=== PATIENT | female | born 1990 | race Caucasian/White ===

== ENCOUNTER 2016-12-11 09:45 | Emergency (ER) | payer OTHER, MEDICAID ==
[2016-12-11] MEDS ORDERED: Ibuprofen TAB* 400 MG PO ONE (10:08)
--- NOTE | 2016-12-11 10:11 | UC ---
Throat Pain/Nasal Daniel HPI - HPI Summary HPI Summary: Sore throat and malaise for 24 hours. - History of Current Complaint Stated Complaint: SORE THROAT,FEVER,EAR PAIN Time Seen by Provider: 12/11/16 10:05 Hx Obtained From: Patient Hx Last Menstrual Period: MIRENA ?: No Onset/Duration: Gradual Onset Severity: Moderate Cough: None Associated Signs & Symptoms: Positive: Dysphagia, Fever. Negative: Wheezing, Sinus Discomfort, Nasal Discharge, Rash - Epiglottits Risk Factors Epiglottis Risk Factors: Negative - Allergies/Home Medications Allergies/Adverse Reactions: Allergies Allergy/AdvReac Type Severity Reaction Status Date / Time No Known Allergies Allergy Verified 12/11/16 10:13 Home Medications: Home Medications Acetaminophen [Acetaminophen Extra Stren] 1,000 mg PO Q6H PRN 12/11/16 [History Confirmed 12/11/16] PMH/Surg Hx/FS Hx/Imm Hx Previously Healthy: Yes - Surgical History Surgical History: Yes Surgery Procedure, Year, and Place: D&C - Family History Known Family History: Positive: Hypertension - Social History Alcohol Use: Rare Substance Use Type: None Smoking Status (MU): Never Smoked Tobacco - Immunization History Most Recent Influenza Vaccination: none Review of Systems All Other Systems Reviewed And Are Negative: Yes Physical Exam Triage Information Reviewed: Yes Appearance: Well-Appearing, No Pain Distress, Well-Nourished Vital Signs Reviewed: Yes ENT: Positive: Pharyngeal erythema, TMs normal. Negative: Nasal drainage, TM bulging, TM dull, TM red, Tonsillar swelling, Tonsillar exudate, Trismus Neck exam: Normal Neck: Positive: Supple, Tenderness @ - minh submandibular. Respiratory Exam: Normal Cardiovascular Exam: Normal Abdominal Exam: Normal Abdomen Description: Positive: Nontender, No Organomegaly Musculoskeletal Exam: Normal Musculoskeletal: Positive: Strength Intact, ROM Intact, No Edema Neurological Exam: Normal Psychological Exam: Normal Throat Pain/Nasal Course/Dx - Differential Dx/Diagnosis Differential Diagnosis/HQI/PQRI: Epiglottitis, Foreign Body, Influenza, Laryngitis, Lico's Angina, Mononucleosis, Otitis Media, Peritonsillar Abscess , Pharyngitis, Sinusitis, Tonsillitis, URI Provider Diagnoses: viral uri. viral pharyngitis. Discharge - Discharge Plan Condition: Good Disposition: HOME Patient Education Materials: Pharyngitis (ED), Upper Respiratory Infection (ED) Referrals: Esperanza Mederos MD [Primary Care Provider] - If Needed
[2016-12-11 10:21] VITALS: BP 99/62
== END 2016-12-11 10:53 | disposition home or self-care (01) ==
LOC: UCCORT 09:45
DX: J06.9 Acute upper respiratory infection, unspecified (principal); J02.9 Acute pharyngitis, unspecified
CPT/HCPCS: 87651; 99212; A9270-GY; G0463

== ENCOUNTER 2017-10-12 10:45 | Emergency (ER) | payer BC, MEDICAID, OTHER ==
[2017-10-12 12:07] VITALS: BP 102/78
--- NOTE | 2017-10-12 13:12 | UC ---
Ear Complaint HPI - HPI Summary HPI Summary: 27 year old female here with congestion and ear pain. Symptoms started 4 days ago and reports her kids (also here for evaluation) had URI symptoms. She reports right ear pain for 3 days with congestion. Of note, patient is 4 weeks s/p 2/2 eclampsia and HELP syndrome. Currently not breast feeding. - History of Current Complaint Chief Complaint: UCRespiratory Stated Complaint: EAR COMPLAINT/COUGH Time Seen by Provider: 10/12/17 12:12 Hx Obtained From: Patient Hx Last Menstrual Period: spotting since 09/15/17 Onset/Duration: Gradual Onset Severity Initially: Mild Severity Currently: Mild Pain Intensity: 5 Alleviating Factors: OTC Meds - Allergies/Home Medications Allergies/Adverse Reactions: Allergies Allergy/AdvReac Type Severity Reaction Status Date / Time No Known Allergies Allergy Verified 10/12/17 12:08 Home Medications: Home Medications Acetaminophen TAB* [Tylenol TAB*] 1,000 mg PO SEE INSTRUCTIONS PRN 10/12/17 [ History Confirmed 10/12/17] Diphenhydra/Phenyleph/Acetamin [Theraflu Nt Severe Cld-Cgh Pkt] 1 dose PO SEE INSTRUCTIONS PRN 10/12/17 [History Confirmed 10/12/17] Labetalol TAB* [Trandate TAB*] 100 mg PO BID 10/12/17 [History Confirmed ] PMH/Surg Hx/FS Hx/Imm Hx Previously Healthy: No Cardiovascular History: Hypertension - Surgical History Surgical History: Yes Surgery Procedure, Year, and Place: D&C, emergent 09/15/17 s/p eclampsia with seizures - Family History Known Family History: Positive: Hypertension - Social History Alcohol Use: Rare Substance Use Type: None Smoking Status (MU): Never Smoked Tobacco - Immunization History Most Recent Influenza Vaccination: none Review of Systems Constitutional: Negative Skin: Negative Eyes: Negative ENT: Ear Ache Respiratory: Cough Cardiovascular: Negative Gastrointestinal: Negative Genitourinary: Negative Motor: Negative Neurovascular: Negative Musculoskeletal: Negative Neurological: Negative Psychological: Negative All Other Systems Reviewed And Are Negative: Yes Physical Exam Triage Information Reviewed: Yes Appearance: Well-Appearing, No Pain Distress Vital Signs: Initial Vital Signs Temp 36.9 C 10/12/17 12:00 Pulse 102 10/12/17 12:00 Resp 20 10/12/17 12:00 BP 102/78 10/12/17 12:00 Pulse Ox 99 10/12/17 12:00 ENT: Positive: Nasal congestion, TM bulging - right TM bulding Neck: Positive: Supple, Nontender, No Lymphadenopathy Respiratory Exam: Normal Cardiovascular Exam: Other - slightly tachy at triage but now resolved Abdominal Exam: Normal Musculoskeletal Exam: Normal Neurological Exam: Normal Ear Complaint Course/Dx - Differential Dx/Diagnosis Differential Diagnosis/HQI/PQRI: Otitis Media, Perforated TM, Pharyngitis Provider Diagnoses: Otitis Media and pharyngitis. Will treat with amox and tylenol 3 for cough/congestion Discharge - Sign-Out/Discharge Documenting (check all that apply): Discharge/Admit/Transfer - Discharge Plan Condition: Good Disposition: HOME Prescriptions: Acetaminop/Codeine 30 MG TAB* [Tylenol/Codeine 30 MG TAB*] 1 tab PO Q6H PRN #12 tab MDD 3 PRN Reason: Cough Amoxicillin PO (*) [Amoxicillin 875 MG (*)] 875 mg PO BID #20 tab Patient Education Materials: Ear Infection (ED), Upper Respiratory Infection ( ED) Referrals: Esperanza Mederos MD [Primary Care Provider] - Additional Instructions: Do not take tylenol [address] heavy machinery - Billing Disposition and Condition Condition: GOOD Disposition: HOME
== END 2017-10-12 13:30 | disposition home or self-care (01) ==
LOC: UCCORT 10:45
DX: H66.90 Otitis media, unspecified, unspecified ear (principal); J02.9 Acute pharyngitis, unspecified
CPT/HCPCS: 99212; G0463

== ENCOUNTER 2018-06-09 08:52 | Emergency (ER) | payer BC, MEDICAID ==
[2018-06-09 09:09] VITALS: BP 117/79
--- NOTE | 2018-06-09 09:47 | UC ---
Respiratory Complaint HPI - HPI Summary HPI Summary: Pt presents with c/o bilateral ear pain, nasal congestion, cough, ST and generalized malaise x 3 days. Pt reports that "everyone in her house is sick" - History of Current Complaint Chief Complaint: UCEar Stated Complaint: SORE THROAT,EARS Time Seen by Provider: 06/09/18 09:08 Hx Obtained From: Patient Hx Last Menstrual Period: 05/18/18 ?: No Onset/Duration: Sudden Onset, Lasting Days, Still Present, Worse Since - onset Timing: Constant Severity Initially: Mild Severity Currently: Moderate Pain Intensity: 8 Associated Signs And Symptoms: Positive: Chills, URI, Nasal Congestion - Risk Factors Pulmonary Embolism Risk Factors: Negative Cardiac Risk Factors: Negative Pseudomonas Risk Factors: Negative Tuberculosis Risk Factors: Negative - Allergies/Home Medications Allergies/Adverse Reactions: Allergies Allergy/AdvReac Type Severity Reaction Status Date / Time No Known Allergies Allergy Verified 06/09/18 09:06 PMH/Surg Hx/FS Hx/Imm Hx Previously Healthy: Yes - Surgical History Surgical History: Yes Surgery Procedure, Year, and Place: D&C, emergent 09/15/17 s/p eclampsia with seizures. tubal - Family History Known Family History: Positive: Hypertension - Social History Occupation: Employed Full-time Lives: With Family Alcohol Use: None Substance Use Type: None Smoking Status (MU): Never Smoked Tobacco Have You Smoked in the Last Year: No - Immunization History Most Recent Influenza Vaccination: none Vaccination Up to Date: No Review of Systems All Other Systems Reviewed And Are Negative: Yes Constitutional: Positive: Fatigue Skin: Positive: Negative Eyes: Positive: Negative ENT: Positive: Sore Throat, Ear Ache Respiratory: Positive: Negative Cardiovascular: Positive: Negative Gastrointestinal: Positive: Negative Genitourinary: Positive: Negative Motor: Positive: Negative Neurovascular: Positive: Negative Musculoskeletal: Positive: Myalgia Neurological: Positive: Headache Psychological: Positive: Negative Is Patient Immunocompromised?: No Physical Exam Triage Information Reviewed: Yes Appearance: Ill-Appearing Vital Signs: Initial Vital Signs Temp 98.2 F 06/09/18 09:06 Pulse 89 06/09/18 09:06 Resp 16 06/09/18 09:06 BP 117/79 06/09/18 09:06 Pulse Ox 99 06/09/18 09:06 Vital Signs Reviewed: Yes ENT: Positive: Nasal congestion, TM bulging Dental Exam: Normal Neck exam: Normal Respiratory Exam: Normal Respiratory: Positive: Other: - upper respiratory congestion Cardiovascular Exam: Normal Musculoskeletal Exam: Normal Neurological Exam: Normal Psychological Exam: Normal Skin Exam: Normal UC Diagnostic Evaluation - Laboratory O2 Sat by Pulse Oximetry: 99 Respiratory Course/Dx - Differential Dx/Diagnosis Differential Diagnosis/HQI/PQRI: Bronchitis, Influenza Provider Diagnosis: Bronchitis Discharge - Sign-Out/Discharge Documenting (check all that apply): Patient Departure All imaging exams completed and their final reports reviewed: No Studies - Discharge Plan Condition: Stable Disposition: HOME Prescriptions: Azithromycin TAB* [Zithromax TAB (Z-MAY) 250 mg #6 tabs] 2 tab PO .TODAY, THEN 1 DAILY #1 may Guaifenesin/Pseudoephedrne HCl [Mucinex D ER 600-60 mg Tablet] 1 each PO Q12H # 20 tab.er.12h Patient Education Materials: Acute Bronchitis (ED) Referrals: [facility] [Outside] No Primary Care Phys,NOPCP [Primary Care Provider] - - Billing Disposition and Condition Condition: STABLE Disposition: Home - Attestation Statements Provider Attestation: I was available for consult. This patient was seen by the [facility]. The patient was not presented to, seen by, or examined by me. EK
== END 2018-06-09 09:52 | disposition home or self-care (01) ==
LOC: UCCORT 08:52
DX: J40 Bronchitis, not specified as acute or chronic (principal)
CPT/HCPCS: 99212; G0463

== ENCOUNTER 2018-10-05 17:24 | Emergency (ER) | payer SELFPAY ==
[2018-10-05 18:13] VITALS: BP 104/66
--- NOTE | 2018-10-05 18:27 | ED ---
Throat Pain/Nasal Congestion - HPI Summary HPI Summary: 28 yr old female with the complaint of sore throat. Onset yesterday. She is concerned for strep throat. She has two other kids in her house with Strep. She denies fever, chills. Last weekend she did have funny nose and cough. That resolved and then onset of these symptoms now. Her symptoms are moderate. - History of Current Complaint Chief Complaint: UCGeneralIllness Time Seen by Provider: 10/05/18 18:15 - Allergies/Home Medications Allergies/Adverse Reactions: Allergies Allergy/AdvReac Type Severity Reaction Status Date / Time No Known Allergies Allergy Verified 10/05/18 18:12 PMH/Surg Hx/FS Hx/Imm Hx - Surgical History Surgery Procedure, Year, and Place: D&C, emergent 09/15/17 s/p eclampsia with seizures. tubal Infectious Disease History: No Infectious Disease History: Denies: Hx Clostridium Difficile, Hx Hepatitis, Hx Human Immunodeficiency Virus (HIV), Hx of Known/Suspected MRSA, Hx Shingles, Hx Tuberculosis, Hx Known/ Suspected VRE, Hx Known/Suspected VRSA, History Other Infectious Disease, Traveled Outside the in Last 30 Days - Family History Known Family History: Positive: Hypertension - Social History Occupation: Employed Full-time Alcohol Use: Occasionally Substance Use Type: Reports: None Smoking Status (MU): Never Smoked Tobacco Have You Smoked in the Last Year: No Review of Systems Constitutional: Negative Positive: Sore Throat All Other Systems Reviewed And Are Negative: Yes Physical Exam Triage Information Reviewed: Yes Vital Signs On Initial Exam: Initial Vitals Temp Pulse Resp BP Pulse Ox 99.4 F 93 16 104/66 100 10/05/18 18:09 10/05/18 18:09 10/05/18 18:09 10/05/18 18:09 10/05/18 18:09 Vital Signs Reviewed: Yes Appearance: Positive: Well-Appearing, No Pain Distress Skin: Positive: Warm, Skin Color Reflects Adequate Perfusion Head/Face: Positive: Normal Head/Face Inspection Eyes: Positive: EOMI ENT: Positive: Pharyngeal erythema, TMs normal Neck: Positive: Nontender Respiratory/Lung Sounds: Positive: Clear to Auscultation, Breath Sounds Present Cardiovascular: Positive: RRR. Negative: Murmur Abdomen Description: Positive: Nontender. Negative: Distended Musculoskeletal: Positive: Strength/ROM Intact Neurological: Positive: Sensory/Motor Intact, Alert, Oriented to Person Place, Time, CN Intact II-III, Normal Gait, Speech Normal Psychiatric: Positive: Normal - Sana Coma Scale Best Eye Response: 4 - Spontaneous Best Motor Response: 6 - Obeys Commands Best Verbal Response: 5 - Oriented Coma Scale Total: 15 Diagnostics - Vital Signs Vital Signs Temp Pulse Resp BP Pulse Ox 10/05/18 18:09 99.4 F 93 16 104/66 100 - Laboratory Lab Statement: Any lab studies that have been ordered have been reviewed, and results considered in the medical decision making process. EENT Course/Dx - Course Course Of Treatment: 28 yr old female with pharyngitis. positive for strep - Diagnoses Provider Diagnoses: Strep pharyngitis Discharge - Sign-Out/Discharge Documenting (check all that apply): Patient Departure All imaging exams completed and their final reports reviewed: No Studies - Discharge Plan Condition: Good Disposition: HOME Prescriptions: Amoxicillin PO (*) [Amoxicillin 500 MG CAP*] 500 mg PO TID #30 cap Patient Education Materials: Strep Throat (ED) Referrals: No Primary Care Phys,NOPCP [Primary Care Provider] - [facility]Outside] - 2 Days - Billing Disposition and Condition Condition: GOOD Disposition: Home
== END 2018-10-05 18:50 | disposition home or self-care (01) ==
LOC: UCCORT 17:24
DX: J02.0 Streptococcal pharyngitis (principal)
CPT/HCPCS: 87651; 99212; G0463